=== PATIENT | female | born 2000 | race Caucasian/White ===

== ENCOUNTER 2022-05-20 19:15 | Emergency (ER) | payer OTHER ==
[2022-05-20 19:23] VITALS: BP 105/64; PULSE 62; RESP 16; TEMP 98.2; BMI 31.6
[2022-05-20] MEDS ORDERED: IBUPROFEN 400 MG TABLET (FP) PO ONE ×2 (19:58→19:59)
== END 2022-05-20 20:11 | disposition home or self-care (01) ==
LOC: FER 19:15
DX: B34.9 Viral infection, unspecified (principal)
CPT/HCPCS: 0241U-QW; 81025; 99283-25